=== PATIENT | female | born 1990 | race Two or more races ===

== ENCOUNTER 2021-12-13 17:23 | Outpatient (CLI) | payer OTHER ==
[2021-12-13] MEDS ORDERED: SYNTHROID125 MCG PO (17:36)
[2021-12-13] MEDS ORDERED: PRENATAL CAPLE1 EAC1 PO (17:36)
[2021-12-13] MEDS ORDERED: IRON325 MG PO (17:36)
[2021-12-13] MEDS ORDERED: ASPIRIN81 MG PO (17:36)
== END 2021-12-14 07:52 | disposition home or self-care (01) ==
LOC: OBS/DEL 17:23
PROVIDERS: ATTEND Obstetrics & Gynecology
DX: O99.613 Diseases of the digestive system complicating pregnancy, third trimester (principal); Z3A.32 32 weeks gestation of pregnancy; K52.9 Noninfective gastroenteritis and colitis, unspecified; Z20.822 Contact with and (suspected) exposure to COVID-19

== ENCOUNTER 2022-02-09 05:13 | Inpatient (IN) | payer OTHER ==
[~2022-02-09 05:13] MED LIST: ASPIRIN81 MG PO; IRON325 MG PO; PRENATAL CAPLE1 EAC1 PO; SYNTHROID125 MCG PO
== END 2022-02-11 12:55 | disposition home or self-care (01) | DRG 807 ==
LOC: LDR 05:13 → SURG-SUITE 05:13
PROVIDERS: ADMIT Obstetrics & Gynecology; ATTEND Obstetrics & Gynecology
PROC: 10E0XZZ Delivery of Products of Conception, External Approach (ICD-10-PCS; principal; 2022-02-09)
PROC: 0KQM0ZZ Repair Perineum Muscle, Open Approach (ICD-10-PCS; 2022-02-09)
PROC: 4A1HXCZ Monitoring of Products of Conception, Cardiac Rate, External Approach (ICD-10-PCS; 2022-02-09)
PROC: 3E033VJ Introduction of Other Hormone into Peripheral Vein, Percutaneous Approach (ICD-10-PCS; 2022-02-09)
PROC: 3E0P7VZ Introduction of Hormone into Female Reproductive, Via Natural or Artificial Opening (ICD-10-PCS; 2022-02-09)
DX: O70.1 Second degree perineal laceration during delivery (principal); Z37.0 Single live birth; Z3A.40 40 weeks gestation of pregnancy; Z20.822 Contact with and (suspected) exposure to COVID-19

== ENCOUNTER 2024-12-26 13:21 | Outpatient (CLI) | payer OTHER | END 2024-12-26 14:38 | disposition home or self-care (01) | LOC: NST 13:21 | PROVIDERS: ATTEND Obstetrics & Gynecology | DX: Z34.83 Encounter for supervision of other normal pregnancy, third trimester (principal) ==

== ENCOUNTER 2025-01-01 14:30 | Inpatient (IN) | payer OTHER ==
[~2025-01-01] VITALS: Ht 152.4 cm; Wt 3.6 kg
[2025-01-05 07:20] VITALS: BP 118/73
[2025-01-05] MEDS ORDERED: OXYTOCIN 20 UNITS/500ML RL PIGGYBAG IV ONE (08:04)
[2025-01-05] MEDS ORDERED: PRENATA CHEWAB1 EACH PO (08:20)
[2025-01-05] MEDS ORDERED: IRON18 M1 PO (08:21)
[2025-01-05] MEDS ORDERED: SYNTHROID137 MCG PO (08:22)
[2025-01-05] MEDS ORDERED: OXYTOCIN 500 ML IV SCH (08:30)
[2025-01-05] MEDS ORDERED: RINGERS SOLUTION,LACTATED 1,000 ML IV SCH (08:30)
[2025-01-05 09:01] LABS: HEMATOCRIT 35.8 % (36.0-45.00); HEMOGLOBIN 12.2 g/dL (12.0-15.00); MEAN CELL VOLUME 89.6 fL (80.00-100.00); MEAN CORPUSCULAR HEMOGLOBIN 30.6 pg (27.00-32.0); MEAN CORPUSCULAR HGB CONC 34.2 g/dl (32.0-36.0); RED CELL DISTRIBUTION WIDTH 16.5 % (11.5-14.5)
[2025-01-05 09:04] LABS: PLATELET COUNT 126 K/uL (150-450)
[2025-01-05 09:41] LABS: INR < 0.93; PARTIAL THROMBOPLASTIN TIME 24.2 SECONDS (22.0-34.0); PROTHROMBIN TIME 9.8 SECONDS (9.0-11.5)
[2025-01-05 10:14] LABS: ALBUMIN 3.3 gm/dL (3.4-5.0); BILIRUBIN TOTAL 0.51 mg/dL (0.3-1.2); CALCIUM 9.5 mg/dL (8.5-10.1); CREATININE SERUM 0.54 mg/dL (0.55-1.02); GFR 129.23; GLOBULINA 3.6 G/DL (2.4-3.5); POTASSIUM 4.23 mEq/L (3.5-5.1); TOTAL PROTEIN 6.9 gm/dL (6.4-8.2); TSH 0.686 uIU/mL (0.358-3.74)
[2025-01-05] MEDS ORDERED: OXYTOCIN 20 UNITS/1000ML RL PIGGYBAG IV ONE ×2 (11:53→16:25)
[2025-01-05] MEDS ORDERED: CHLORHEXIDINE GLUCONATE 120 ML BOTTLE TOP ONE (11:53)
[2025-01-05] MEDS ORDERED: ERYTHROMYCIN BASE OPHT 1GM EACH TUBE OP ONE (11:53)
[2025-01-05] MEDS ORDERED: LIDOCAINE HCL 1% 10ML VIAL ONE (11:54)
[2025-01-05] MEDS ORDERED: OXYTOCIN 1,000 ML IV SCH (12:45)
[2025-01-05] MEDS ORDERED: CHLORHEXIDINE GLUCONATE 120 ML BOTTLE TP SCH (12:45)
[2025-01-05] MEDS ORDERED: OxyCODONE HCL 5 MG TABLET (ROXICODONE) PO SCH (16:00)
[2025-01-05 16:10] VITALS: BP 123/68
[2025-01-05 16:53] VITALS: BP 116/80
[2025-01-05] MEDS ORDERED: DOCUSATE SODIUM 100MG CAP PO SCH (17:00)
[2025-01-05] MEDS ORDERED: KETOROLAC TROMETHAMINE 10 MG TABLET PO SCH (18:00)
[2025-01-06] VITALS: BP 100/61
[2025-01-06 08:09] VITALS: BP 105/61
[2025-01-06 16:00] VITALS: BP 121/79
[2025-01-07] VITALS: BP 103/66
[2025-01-07 06:00] VITALS: BP 104/69
[2025-01-07 08:23] VITALS: BP 106/69
== END 2025-01-07 13:34 | disposition home or self-care (01) | DRG 807 ==
LOC: LDR 01-05 06:43 → OB/GYN 01-05 06:43 → LDR 01-05 14:30 → OB/GYN 01-07 13:34
PROVIDERS: Obstetrics & Gynecology Maternal & Fetal Medicine; ADMIT Obstetrics & Gynecology; ATTEND Obstetrics & Gynecology
PROC: 10E0XZZ Delivery of Products of Conception, External Approach (ICD-10-PCS; principal; 2025-01-05)
PROC: 0KQM0ZZ Repair Perineum Muscle, Open Approach (ICD-10-PCS; 2025-01-05)
PROC: 0W8NXZZ Division of Female Perineum, External Approach (ICD-10-PCS; 2025-01-05)
PROC: 4A1HXCZ Monitoring of Products of Conception, Cardiac Rate, External Approach (ICD-10-PCS; 2025-01-05)
DX: O70.1 Second degree perineal laceration during delivery (principal); Z37.0 Single live birth; Z3A.40 40 weeks gestation of pregnancy

== ENCOUNTER 2025-01-02 14:29 | Outpatient (CLI) | payer OTHER | END 2025-01-02 14:49 | disposition home or self-care (01) | LOC: NST 14:29 | PROVIDERS: ATTEND Obstetrics & Gynecology Maternal & Fetal Medicine | DX: Z3A.39 39 weeks gestation of pregnancy (principal) ==